=== PATIENT | male | born 1995 | race Two or more races ===

== ENCOUNTER 2016-07-10 22:27 | Emergency (ER) | payer SELFPAY ==
[~2016-07-10] VITALS: Ht 177.8 cm; Wt 108.9 kg
[2016-07-10 23:17] VITALS: BP 156/81
[2016-07-10 23:44] LABS: OBC FLU VALID
[2016-07-10] MEDS ORDERED: OSEL75CA PO (23:55)
--- NOTE | 2016-07-10 23:56 | PHYS DOC ---
Past Medical History Past Medical History: No Pertinent History Past Surgical History: No Surgical History Alcohol Use: None Drug Use: None Adult General Chief Complaint Chief Complaint: COUGH HPI HPI Patient is a 21 year old male presents emergency department with a family member who both been complaining of headaches cough and generalized body aches and discomfort. They state that this is started today. They state that the fevers have been pretty high. They've been taken Tylenol and ibuprofen for fever chills or generalized body aches and discomfort without much relief. Review of Systems Review of Systems Constitutional: Denies fever or chills [] Eyes: Denies change in visual acuity, redness, or eye pain [] HENT: nasal congestion and sore throat [] Respiratory: cough denies shortness of breath [] Cardiovascular: No additional information not addressed in HPI [] GI: Denies abdominal pain, nausea, vomiting, bloody stools or diarrhea [] : Denies dysuria or hematuria [] Musculoskeletal: Denies back pain or joint pain [] Integument: Denies rash or skin lesions [] Neurologic: Denies headache, focal weakness or sensory changes [] Current Medications Current Medications Current Medications Medications (Trade) Dose Ordered Sig/Ani Start Time Stop Time Status Last Admin Dose Admin Acetaminophen (Tylenol) 650 mg 1X ONCE 07/11/16 00:00 07/11/16 00:01 Allergies Allergies Allergies Coded Allergies Type Severity Reaction Last Updated Verified No Known Drug Allergies 07/10/16 No Physical Exam Physical Exam Constitutional: Well developed, well nourished, no acute distress, non-toxic appearance. [] HENT: Normocephalic, atraumatic, bilateral external ears normal, oropharynx moist, no oral exudates, nose normal. Bilateral tympanic membranes appear to be normal. Throat appears to be without erythematous or exudate. Eyes: PERRLA, EOMI, conjunctiva normal, no discharge. [] Neck: Normal range of motion, no tenderness, supple, no stridor. [] Cardiovascular:Heart rate regular rhythm, no murmur [] Lungs & Thorax: Bilateral breath sounds clear to auscultation [] Skin: Warm, dry, no erythema, no rash. [] Back: No tenderness Extremities: No tenderness, no cyanosis, no clubbing, ROM intact, no edema. [] Neurologic: Alert and oriented X 3, normal motor function, normal sensory function, no focal deficits noted. [] Psychologic: Affect normal, judgement normal, mood normal. [] Current Patient Data Vital Signs Vital Signs Date Time Temp Pulse Resp B/P Pulse Ox O2 Delivery O2 Flow Rate FiO2 07/10/16 23:17 99.7 117 18 97 Room Air 99.7 Lab Values Laboratory Tests Test 07/10/16 23:00 Influenza Type A Antigen Negative (NEGATIVE) Influenza Type B Antigen Negative (NEGATIVE) EKG EKG [] Radiology/Procedures Radiology/Procedures [] Course & Med Decision Making Course & Med Decision Making Pertinent Labs and Imaging studies reviewed. (See chart for details) Influenza A and B were negative. Patient still appears to have signs and symptoms of influenza. Patient will be treated for influenza with Tamiflu. Patient will be discharged home in stable condition with recommendations for Tylenol and ibuprofen for fever chills or generalized body aches and discomfort. Also recommended Mucinex DM [id number]. Patient agrees with discharge instructions treatment regimens and follow-up recommendations. Since symptoms to return back to emergency department been provided. [] Dragon Disclaimer Dragon Disclaimer This electronic medical record was generated, in whole or in part, using a voice recognition dictation system. Departure Departure Impression: Primary Impression: Influenza-like symptoms Disposition: HOME, SELF-CARE Condition: STABLE Referrals: NO PCP (PCP) Patient Instructions: Viral Infections, [id number] Additional Instructions: Home to rest Medication as prescribed Tylenol or Ibuprofen for fever, chills or generalized body aches and discomfort Mucinxe DM as prescribed by manufacture Drink plenty of fluids such as water, propel and gatorade Followup with primary care provider in 5-7 days Return to emergency department as needed for signs and symptoms that become worse. Scripts Oseltamivir Phosphate (Tamiflu)75 Mg Capsule1 Cap PO BID #10 CAP Prov:COLLIN ROBERTSON NP 07/10/16 COLLIN ROBERTSON [employer] Jul 10, 2016 23:55
[2016-07-11] MEDS ORDERED: ACETAMINOPHEN 325 MG TABLET. PO ONE
== END 2016-07-11 00:06 | disposition home or self-care (01) ==
LOC: ER 22:27
DX: R51 Headache (principal); R05 Cough; R50.9 Fever, unspecified; M79.1 Myalgia
CPT/HCPCS: 87804; 99284